=== PATIENT | female | born 1995 | race Caucasian/White ===

== ENCOUNTER 2018-11-27 10:21 | Emergency (ER) | payer SELFPAY ==
[2018-11-27] MEDS ORDERED: Sodium Chloride 0.9% 1,000 ML IV ONE (10:47)
[2018-11-27] MEDS ORDERED: Sodium Chloride 0.9% 10 ML Syringe FLUSH PRN (10:47)
--- NOTE | 2018-11-27 12:04 | EDM.PDOC ---
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 Patient states that she went to the walk-in clinic but was sent here for further evaluation. She notes that she has had heavy vaginal bleeding for roughly 3 weeks now. She notes that she does normally have heavy periods however this has worsened. She states she is saturating through a tampon every 2 hours. Patient relates feeling more tired and weak than she normally does. 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 The patient denies any sort of abdominal pain, denies any history of dysuria with this she notes that her lower abdomen is tender but has attributed this to her menses. She further notes that she was contacted by an ex-boyfriend for which she had unprotected sex with, and was told that he had HIV or AIDS and that she should get tested. The patient states that she has been taking some iron supplementation with vitamin C supplementation at home and has been trying to increase her fluid intake as well, but nothing has really made the bleeding stopped before made her feel better. The patient was doing some online searching and was wondering if control could help her heavy periods. Lower Back Pain Score (Numeric/FACES): 2 - Related Data Allergies Allergy/AdvReac Type Severity Reaction Status Date / Time No Known Allergies Allergy Verified 11/27/18 10:38 Home Meds: Home Meds Multivitamin with Iron [Multivitamins with Iron] 1 tab PO DAILY 11/27/18 [ History] medroxyPROGESTERone [Provera] 10 mg PO DAILY #10 tab 11/27/18 [Rx] Past Medical History - Past Health History Medical/Surgical History: Denies Medical/Surgical History Social & Family History - Family History Family Medical History: Noncontributory - Tobacco Use Smoking Status *Q: Current Every Day Smoker Years of Tobacco use: 1 Packs/Tins Daily: 0.2 - Caffeine Use Caffeine Use: Reports: Coffee, Soda - Recreational Drug Use Recreational Drug Use: No ED ROS GENERAL - Review of Systems Review Of Systems: See Below Constitutional: Reports: Weakness (generalized). Denies: Fever, Chills HEENT: Reports: No Symptoms Respiratory: Reports: No Symptoms Cardiovascular: Reports: No Symptoms Endocrine: Reports: No Symptoms GI/Abdominal: Reports: Abdominal Pain (lower abd tenderness). Denies: Constipation, Diarrhea, Nausea, Vomiting : Reports: Other (heavy vaginal bleeding). Denies: Discharge, Dysuria Musculoskeletal: Reports: No Symptoms Skin: Reports: No Symptoms Neurological: Reports: Dizziness (mild) Psychiatric: Reports: No Symptoms Hematologic/Lymphatic: Reports: No Symptoms Immunologic: Reports: No Symptoms ED EXAM, RENAL/ - Physical Exam Exam: See Below Exam Limited By: No Limitations General Appearance: Alert, WD/WN, No Apparent Distress Eye Exam: Bilateral Eye: EOMI Throat/Mouth: Normal Inspection, Normal Lips, Normal Teeth, Normal Gums, Normal Oropharynx, Normal Voice, No Airway Compromise Head: Atraumatic, Normocephalic Neck: Normal Inspection, Supple, Non-Tender, Full Range of Motion Respiratory/Chest: No Respiratory Distress, Lungs Clear, Normal Breath Sounds, No Accessory Muscle Use, Chest Non-Tender Cardiovascular: Normal Peripheral Pulses, Regular Rate, Rhythm, No Murmur GI/Abdominal: Normal Bowel Sounds, Soft, Non-Tender, No Distention, No Mass (Female) Exam: Deferred Extremities: Normal Inspection, Normal Range of Motion, Normal Capillary Refill Neurological: Alert, Oriented, Normal Cognition, No Motor/Sensory Deficits Psychiatric: Normal Affect, Normal Mood Skin Exam: Warm, Dry, Intact, Normal Color, No Rash Course - Vital Signs Last Recorded V/S: Last Vital Signs Temp 96.9 F 11/27/18 10:34 Pulse 63 11/27/18 10:34 Resp 16 11/27/18 10:34 BP 120/82 11/27/18 10:34 Pulse Ox 99 11/27/18 10:34 Orthostatic Blood Pressure [ 124/81 Standing] Orthostatic Blood Pressure [ 118/83 Supine] - Orders/Labs/Meds Orders: Active Orders 24 hr Category Date Time Status Orthostatic Vital Signs [RC] ASDIRECTED Care 11/27/18 10:48 Ordered Peripheral IV Care [RC] . DIRECTED Care 11/27/18 10:47 Ordered PATIENT RETYPE [BBK] Routine Lab 11/27/18 13:02 Ordered TYPE AND SCREEN [BBK] Stat Lab 11/27/18 10:47 Ordered Sodium Chloride 0.9% [Saline Flush] Med 11/27/18 10:47 Active 10 ml FLUSH ASDIRECTED PRN Peripheral IV Insertion Adult [OM.PC] Routine Oth 11/27/18 10:47 Ordered Medication Orders Sodium Chloride (Saline Flush) 10 ml FLUSH ASDIRECTED PRN PRN Reason: Keep Vein Open Last Admin: 11/27/18 12:09 Dose: 10 ml Labs: Laboratory Tests 11/27/18 11/27/18 11/27/18 Range/Units 11:59 11:59 11:59 WBC 6.64 (3.98-10.04) K/mm3 RBC 4.63 (3.98-5.22) M/mm3 Hgb 14.4 (11.2-15.7) gm/dl Hct 44.0 (34.1-44.9) % MCV 95.0 H (79.4-94.8) fl MCH 31.1 (25.6-32.2) pg MCHC 32.7 (32.2-35.5) g/dl RDW Std Deviation 41.7 (36.4-46.3) fL Plt Count 187 (182-369) K/mm3 MPV 11.4 (9.4-12.3) fl Neut % (Auto) 68.6 (34.0-71.1) % Lymph % (Auto) 23.2 (19.3-51.7) % [place] % (Auto) 6.0 (4.7-12.5) % Eos % (Auto) 1.5 (0.7-5.8) Baso % (Auto) 0.5 (0.1-1.2) % Neut # (Auto) 4.56 (1.56-6.13) K/mm3 Lymph # (Auto) 1.54 (1.18-3.74) K/mm3 [place] # (Auto) 0.40 H (0.24-0.36) K/mm3 Eos # (Auto) 0.10 (0.04-0.36) K/mm3 Baso # (Auto) 0.03 (0.01-0.08) K/mm3 HCG, Qual Negative (NEGATIVE) HIV-1 Ab Rapid Screen (NEGATIVE) Blood Type B POSITIVE 11/27/18 Range/Units 11:59 WBC (3.98-10.04) K/mm3 RBC (3.98-5.22) M/mm3 Hgb (11.2-15.7) gm/dl Hct (34.1-44.9) % MCV (79.4-94.8) fl MCH (25.6-32.2) pg MCHC (32.2-35.5) g/dl RDW Std Deviation (36.4-46.3) fL Plt Count (182-369) K/mm3 MPV (9.4-12.3) fl Neut % (Auto) (34.0-71.1) % Lymph % (Auto) (19.3-51.7) % [place] % (Auto) (4.7-12.5) % Eos % (Auto) (0.7-5.8) Baso % (Auto) (0.1-1.2) % Neut # (Auto) (1.56-6.13) K/mm3 Lymph # (Auto) (1.18-3.74) K/mm3 [place] # (Auto) (0.24-0.36) K/mm3 Eos # (Auto) (0.04-0.36) K/mm3 Baso # (Auto) (0.01-0.08) K/mm3 HCG, Qual (NEGATIVE) HIV-1 Ab Rapid Screen Negative (NEGATIVE) Blood Type Meds: Medications Generic Name Dose Route Start Last Admin Trade Name Freq PRN Reason Stop Dose Admin Sodium Chloride 10 ml 11/27/18 10:47 11/27/18 12:09 Saline Flush FLUSH 10 ml ASDIRECTED PRN Administration Keep Vein Open Discontinued Medications Generic Name Dose Route Start Last Admin Trade Name Freq PRN Reason Stop Dose Admin Sodium Chloride 1,000 mls @ 999 mls/hr 11/27/18 10:47 11/27/18 12:05 Normal Saline IV 11/27/18 11:47 999 mls/hr ONETIME ONE Administration - Re-Assessments/Exams Free Text/Narrative Re-Assessment/Exam: 11/27/18 11:05 Patient presents to the ED for evaluation of heavy vaginal bleeding. I did order a qualitative hCG to rule out , CBC, type and screen, and IV to be placed, with some IV fluids, and HIV RapidScreen, however if this is negative this will need to be repeated in 3 or 4 months. Orthostatic VS will be obtained to see how volume depleted she might be. The patient states to me that she went to the clinic to try to get on BC to help regulate flow and was worried about the HIV testing. If she is not , I can get her started on Provera and have her follow up with [employer] or a [facility] provider [facility]. 11/27/18 12:45 Patient's HIV screen is negative, hCG screen is negative, and her hemoglobin is within normal limits at 14. After the IV fluids, will likely discharge the patient home with a course of Provera and recommendations for follow-up with a clinic provider to prescribe control. Departure - Departure Time of Disposition: 13:43 Disposition: Home, Self-Care 01 Condition: Fair Clinical Impression: Vaginal bleeding - Discharge Information *PRESCRIPTION DRUG MONITORING PROGRAM REVIEWED*: No *COPY OF PRESCRIPTION DRUG MONITORING REPORT IN PATIENT FIDEL: No Prescriptions: medroxyPROGESTERone [Provera] 10 mg PO DAILY #10 tab Instructions: Dysfunctional Uterine Bleeding Referrals: PCP,None [Primary Care Provider] - Forms: ED Department Discharge Additional Instructions: You were evaluated in the ER today for your vaginal bleeding. You were given a prescription for Provera, please take one tablet once daily for the next 10 days to help stop the vaginal bleeding. Your laboratory evaluation was all within normal limits today. Your HIV screen was negative, however it is recommended that you repeat this in 3 months to make sure that it is still negative. You can go to any community clinic for this, examples of clinics would be [facility], and [facility]. You are not at today's visit. You will need to follow up with a provider of your choosing to prescribe control to regulate your cycle, you may see [employer] HELPER or family practice at any facility, our [facility] clinic number is [phone], the [place] [facility] is . Please call and do so as soon as you are able. Please return to the ED if her symptoms change or worsen. - My Orders Last 24 Hours: My Active Orders 11/27/18 10:47 Peripheral IV Care [RC] . DIRECTED TYPE AND SCREEN [BBK] Stat Sodium Chloride 0.9% [Saline Flush] 10 ml FLUSH ASDIRECTED PRN Peripheral IV Insertion Adult [OM.PC] Routine 11/27/18 10:48 Orthostatic Vital Signs [RC] ASDIRECTED 11/27/18 13:02 PATIENT RETYPE [BBK] Routine - Assessment/Plan Last 24 Hours: My Active Orders 11/27/18 10:47 Peripheral IV Care [RC] . DIRECTED TYPE AND SCREEN [BBK] Stat Sodium Chloride 0.9% [Saline Flush] 10 ml FLUSH ASDIRECTED PRN Peripheral IV Insertion Adult [OM.PC] Routine 11/27/18 10:48 Orthostatic Vital Signs [RC] ASDIRECTED 11/27/18 13:02 PATIENT RETYPE [BBK] Routine
== END 2018-11-27 14:18 | disposition home or self-care (01) ==
LOC: JD.ED 10:21
DX: N93.9 Abnormal uterine and vaginal bleeding, unspecified (principal); F17.200 Nicotine dependence, unspecified, uncomplicated
CPT/HCPCS: 36415; 84703; 85025; 86850; 86900; 86901; 87449; 96360; 99284; J7040; G0433

== ENCOUNTER 2019-08-19 17:58 | Emergency (ER) | payer SELFPAY ==
[2019-08-19] MEDS ORDERED: Sodium Chloride 0.9% 10 ML Syringe FLUSH PRN (18:27)
--- NOTE | 2019-08-19 19:58 | EDM.PDOC ---
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 She says this has been going on since July 23. She has some pelvic pain with it. She said this did happen last year. She was at work today and she passed a large clot about the size of her hand. She has no fever, chills, cough, congestion, runny nose, chest pain, shortness of breath, nausea or vomiting. Onset: Gradual Duration: Week(s): Location: Reports: Pelvis Quality: Reports: Sharp Severity: Moderate Improves with: Reports: None Worsens with: Reports: None Associated Symptoms: Reports: No Other Symptoms Pelvic Pain Score (Numeric/FACES): 5 - Related Data Allergies Allergy/AdvReac Type Severity Reaction Status Date / Time No Known Allergies Allergy Verified 08/19/19 18:16 Home Meds: Home Meds Multivitamin with Iron [Multivitamins with Iron] 1 tab PO DAILY 11/27/18 [History] medroxyPROGESTERone [Provera] 10 mg PO DAILY #10 tab 08/19/19 [Rx] Past Medical History - Past Health History Medical/Surgical History: Denies Medical/Surgical History Social & Family History - Family History Family Medical History: Noncontributory - Tobacco Use Smoking Status *Q: Current Every Day Smoker Years of Tobacco use: 5 Packs/Tins Daily: 0.2 - Caffeine Use Caffeine Use: Reports: None - Recreational Drug Use Recreational Drug Use: No ED ROS GENERAL - Review of Systems Review Of Systems: See Below Constitutional: Reports: No Symptoms HEENT: Reports: No Symptoms Respiratory: Reports: No Symptoms Cardiovascular: Reports: No Symptoms Endocrine: Reports: No Symptoms GI/Abdominal: Reports: No Symptoms : Reports: Other (Pelvic pain and vaginal bleeding) Musculoskeletal: Reports: No Symptoms Skin: Reports: No Symptoms ED EXAM, GI/ABD - Physical Exam Exam: See Below Exam Limited By: No Limitations General Appearance: Alert, No Apparent Distress Ears: Normal External Exam Nose: Normal Inspection Head: Atraumatic, Normocephalic Neck: Normal Inspection Respiratory/Chest: No Respiratory Distress, Lungs Clear, Normal Breath Sounds Cardiovascular: Regular Rate, Rhythm, No Edema, No Murmur GI/Abdominal Exam: Soft, No Organomegaly, No Mass, Tender (Mild tenderness to the lower abdomen) Course - Vital Signs Last Recorded V/S: Last Vital Signs Temp 97.5 F 08/19/19 18:13 Pulse 72 08/19/19 18:13 Resp 16 08/19/19 18:13 BP 126/68 08/19/19 18:13 Pulse Ox 100 08/19/19 18:13 - Orders/Labs/Meds Orders: Active Orders 24 hr Category Date Time Status Pelvic Exam, Set Up [RC] ASDIRECTED Care 08/19/19 18:28 Active Peripheral IV Care [RC] . DIRECTED Care 08/19/19 18:27 Active Sodium Chloride 0.9% [Saline Flush] Med 08/19/19 18:27 Active 10 ml FLUSH ASDIRECTED PRN Peripheral IV Insertion Adult [OM.PC] Routine Oth 08/19/19 18:27 Ordered Medication Orders Sodium Chloride (Saline Flush) 10 ml FLUSH ASDIRECTED PRN PRN Reason: Keep Vein Open Last Admin: 08/19/19 18:40 Dose: 10 ml Documented by: GLADIS Labs: Laboratory Tests 08/19/19 08/19/19 08/19/19 Range/Units 18:40 18:40 18:40 WBC 8.21 (3.98-10.04) K/mm3 RBC 4.52 (3.98-5.22) M/mm3 Hgb 14.2 (11.2-15.7) gm/dl Hct 42.8 (34.1-44.9) % MCV 94.7 (79.4-94.8) fl MCH 31.4 (25.6-32.2) pg MCHC 33.2 (32.2-35.5) g/dl RDW Std Deviation 40.9 (36.4-46.3) fL Plt Count 188 (182-369) K/mm3 MPV 10.9 (9.4-12.3) fl Neut % (Auto) 66.9 (34.0-71.1) % Lymph % (Auto) 24.5 (19.3-51.7) % [place] % (Auto) 5.8 (4.7-12.5) % Eos % (Auto) 2.3 (0.7-5.8) Baso % (Auto) 0.4 (0.1-1.2) % Neut # (Auto) 5.49 (1.56-6.13) K/mm3 Lymph # (Auto) 2.01 (1.18-3.74) K/mm3 [place] # (Auto) 0.48 H (0.24-0.36) K/mm3 Eos # (Auto) 0.19 (0.04-0.36) K/mm3 Baso # (Auto) 0.03 (0.01-0.08) K/mm3 HCG, Quant < 1.0 mIU/mL Blood Type B POSITIVE Gel Antibody Screen Negative Meds: Medications Generic Name Dose Route Start Last Admin Trade Name Freq PRN Reason Stop Dose Admin Sodium Chloride 10 ml 08/19/19 18:27 08/19/19 18:40 Saline Flush FLUSH 10 ml ASDIRECTED PRN Administration Keep Vein Open - Re-Assessments/Exams Free Text/Narrative Re-Assessment/Exam: 08/19/19 19:57 I ordered an IV saline lock, labs and a transvaginal US. 08/19/19 20:45 Her CBC looks good. Her Hcg is negative. Her blood type is B+. Her US shows possible polycystic ovarian disease. No additional abnormality is seen on pelvic US exam. I will get her on some provera and have her follow up with Dr Duckworth. Departure - Departure Time of Disposition: 20:50 Disposition: Home, Self-Care 01 Condition: Good Clinical Impression: Dysfunctional uterine bleeding - Discharge Information *PRESCRIPTION DRUG MONITORING PROGRAM REVIEWED*: Not Applicable *COPY OF PRESCRIPTION DRUG MONITORING REPORT IN PATIENT FIDEL: Not Applicable Prescriptions: medroxyPROGESTERone [Provera] 10 mg PO DAILY #10 tab Referrals: PCP,None [Primary Care Provider] - Olvin Duckworth MD [Physician] - 1 Week Forms: ED Department Discharge Additional Instructions: Take the provera daily for 10 days. Drink plenty of fluids. Take motrin or aleve for any pain. Follow up with Dr Duckworth within a week. Please return if you are worse. Sepsis Event Note (ED) - Evaluation Sepsis Screening Result: No Definite Risk - Focused Exam Vital Signs: Vital Signs Temp Pulse Resp BP Pulse Ox 06/18/20 18:13 97.5 F 72 16 126/68 100 - My Orders Last 24 Hours: My Active Orders 08/19/19 18:27 Peripheral IV Care [RC] . DIRECTED Sodium Chloride 0.9% [Saline Flush] 10 ml FLUSH ASDIRECTED PRN Peripheral IV Insertion Adult [OM.PC] Routine 08/19/19 18:28 Pelvic Exam, Set Up [RC] ASDIRECTED - Assessment/Plan Last 24 Hours: My Active Orders 08/19/19 18:27 Peripheral IV Care [RC] . DIRECTED Sodium Chloride 0.9% [Saline Flush] 10 ml FLUSH ASDIRECTED PRN Peripheral IV Insertion Adult [OM.PC] Routine 08/19/19 18:28 Pelvic Exam, Set Up [RC] ASDIRECTED
--- NOTE | 2019-08-19 19:59 | US ---
Pelvic ultrasound: Multiple real-time images were obtained transvaginally. Uterus is anteverted. No myometrial abnormality is appreciated. No free fluid is seen. Endometrial thickness is 9 mm which is believed to be within normal limits. Multiple follicles are seen within the ovaries. There is some peripheral alignment of these follicles raising the possibility of polycystic ovarian disease. Measurements: Uterus: Length 7.1 cm, transverse width 4.4 cm, AP height is 3.3 cm Right ovary: 3.8 x 3.1 x 2.0 cm Left ovary: 3.9 0.4 x 2.8 cm Impression: 1. Possible polycystic ovarian disease. 2. No additional abnormality is seen on pelvic ultrasound exam. Diagnostic code #2 Study was dictated in MDT
== END 2019-08-19 21:02 | disposition home or self-care (01) ==
LOC: JD.ED 17:58
DX: N93.8 Other specified abnormal uterine and vaginal bleeding (principal); F17.210 Nicotine dependence, cigarettes, uncomplicated; Z79.899 Other long term (current) drug therapy
CPT/HCPCS: 36415; 76830; 76830-26; 84702; 85025; 86850; 86900; 86901; 99284-25

== ENCOUNTER 2024-04-12 21:06 | Emergency (ER) | payer MEDICAID ==
[2024-04-12] MEDS: LORazepam 1 MG Tab PO ONE (21:52)
[2024-04-12 22:08] LABS: BARBITURATE SCREEN,URINE NEGATIVE (CUTOFF=200); BENZODIAZEPINES SCREEN,URINE NEGATIVE (CUTOFF=150); BUPRENORPHINE SCREEN,URINE NEGATIVE (CUTOFF=10); METHADONE SCREEN, URINE NEGATIVE (CUTOFF=200); METHAMPHETAMINES SCREEN, URINE NEGATIVE (CUTOFF=500); OXYCODONE SCREEN,URINE NEGATIVE (CUT0FF=100); THC SCREEN,URINE 20 NG/ML NEGATIVE (CUTOFF=50)
[2024-04-12 22:15] LABS: AMPHETAMINES SCREEN, URINE NEGATIVE (CUTOFF=500)
[2024-04-12 23:04] LABS: BASOPHILS PERCENT AUTO 0.3 % (0.0-1.0); EOSINOPHILS ABSOLUTE AUTO 0.1 K/mm3 (0.0-0.4); EOSINOPHILS PERCENT AUTO 0.9 % (0.0-6.0); HEMATOCRIT 41.8 % (37.0-47.0); HEMOGLOBIN 13.6 gm/dl (12.0-16.0); IMMATURE GRAN ABSOLUTE AUTO 0.02 K/mm3 (0.00-0.05); IMMATURE GRAN PERCENT AUTO 0.2 % (0.0-0.4); LYMPHOCYTES ABSOLUTE AUTO 1.6 K/mm3 (1.0-4.8); LYMPHOCYTES PERCENT AUTO 18.6 % (24.0-44.0); MEAN CORPUSCULAR HEMOGLOBIN 30.3 pg (28.0-32.0); MEAN CORPUSCULAR HGB CONC 32.5 g/dl (32.0-36.0); MEAN CORPUSCULAR VOLUME 93.1 fl (83.0-99.0); MEAN PLATELET VOLUME 10.8 fl (9.4-12.3); MONOCYTES ABSOLUTE AUTO 0.6 K/mm3 (0.0-0.8); MONOCYTES PERCENT AUTO 7.5 % (0.0-8.0); NEUTROPHILS ABSOLUTE AUTO 6.2 K/mm3 (1.8-7.7); NEUTROPHILS PERCENT AUTO 72.5 % (41.0-71.0); PLATELET COUNT,PLT 248 K/mm3 (150-400); RED BLOOD CELL COUNT 4.49 M/mm3 (4.10-5.30); WHITE BLOOD CELL COUNT,WBC 8.59 K/mm3 (3.9-11.3)
[2024-04-12] MEDS: OLANZapine 5 MG Tab PO ONE (23:11)
[2024-04-12 23:37] LABS: A/G RATIO 0.9 (1-2); ALBUMIN 3.6 g/dl (3.4-5.0); ANION GAP 12.9 (5-15); BILIRUBIN TOTAL 0.2 mg/dL (0.2-1.0); CALCIUM 8.6 mg/dL (8.5-10.1); CREATININE 0.8 mg/dL (0.55-1.02); EST CRCL DRUG DOSING (CG) 101.81 mL/min; ETHANOL BLOOD MEDICAL 0.16 gm% (0.00); MAGNESIUM 2.1 mg/dL (1.8-2.4); POTASSIUM,K 3.9 mEq/L (3.5-5.1); PROTEIN TOTAL,TP 7.6 g/dl (6.4-8.2); TSH 2.417 uIU/mL (0.358-3.74)
[2024-04-12] MEDS: OLANZapine 5 MG Tab ONE (23:49)
== END 2024-04-13 13:58 ==
LOC: JD.ED 21:06
DX: R45.851 Suicidal ideations (principal); F41.9 Anxiety disorder, unspecified; F19.10 Other psychoactive substance abuse, uncomplicated; Z79.899 Other long term (current) drug therapy
CPT/HCPCS: 36415; 80053; 80143; 80179; 80306; 80307; 83735; 84443; 84703; 85025; 99284; A9270; 99285